=== PATIENT | female | born 2000 | race Caucasian/White ===

== ENCOUNTER 2018-03-18 14:55 | Emergency (ER) | payer OTHER ==
[~2018-03-18] VITALS: Ht 165.1 cm; Wt 54.4 kg
[2018-03-18 16:01] VITALS: BP 115/72
== END 2018-03-18 16:02 | disposition home or self-care (01) ==
LOC: M.ERS 14:55
DX: S61.214A Laceration without foreign body of right ring finger without damage to nail, initial encounter (principal); Z88.0 Allergy status to penicillin; Z88.2 Allergy status to sulfonamides; Z88.1 Allergy status to other antibiotic agents; W26.8XXA Contact with other sharp object(s), not elsewhere classified, initial encounter; Y93.89 Activity, other specified; Y92.89 Other specified places as the place of occurrence of the external cause; Y99.8 Other external cause status

== ENCOUNTER 2019-10-16 10:08 | Emergency (ER) | payer OTHER ==
[~2019-10-16] VITALS: Ht 160 cm; Wt 81.7 kg
[2019-10-16 11:02] LABS: INFLUENZA A ANTIGEN Negative (Negative); INFLUENZA B ANTIGEN Negative (Negative)
[2019-10-16] MEDS ORDERED: VENTOLIN HFA 1818 GM INH (11:45)
[2019-10-16] MEDS ORDERED: TRANSDERM-SCOP1 EACH TRANSDERM (11:45)
[2019-10-16 11:59] VITALS: BP 105/64
== END 2019-10-16 12:01 | disposition home or self-care (01) ==
LOC: M.ERS 10:08
PROVIDERS: Nurse Practitioner Family
DX: J06.9 Acute upper respiratory infection, unspecified (principal); H81.10 Benign paroxysmal vertigo, unspecified ear; Z90.89 Acquired absence of other organs